=== PATIENT | female | born 1955 | race Caucasian/White ===

== ENCOUNTER 2024-03-09 05:50 | Day surgery (SDC) | payer MEDICARE, OTHER ==
[2024-03-08 10:32] LABS: BASOPHILS % (AUTO) 0.3 % (0-1); EOSINOPHILS # (AUTO) 0.1 X10'3 (0-0.9); EOSINOPHILS % (AUTO) 1.4 % (0-6); HEMATOCRIT 43.2 % (35.0-45.0); HEMOGLOBIN 14.5 g/dl (12.0-16.0); LYMPHOCYTES # (AUTO) 1.8 X10'3 (1.1-4.8); MEAN CORPUSCULAR HEMOGLOBIN 29.7 PG (27.0-31.0); MEAN CORPUSCULAR HGB CONC 33.5 g/dL (33.0-36.5); MEAN CORPUSCULAR VOLUME 88.7 FL (78-98); MEAN PLATELET VOLUME 8.2 FL (7.4-10.4); MONOCYTES # (AUTO) 0.7 X10'3 (0-0.9); MONOCYTES % (AUTO) 10.7 % (2-12); NEUTROPHILS # (AUTO) 3.6 X10'3 (1.8-7.7); NEUTROPHILS % (AUTO) 58.6 % (42-75); PLATELET COUNT 197 X10'3 (140-440); RED BLOOD COUNT 4.87 X10'6 (4.20-5.60); RED CELL DISTRIBUTION WIDTH 13.5 % (11.5-14.5); WHITE BLOOD COUNT 6.2 X10'3 (4.5-11.0)
[2024-03-08 10:44] LABS: ALBUMIN 3.6 G/DL (3.4-5.0); ANION GAP 6 (8-16); CALCIUM 9.6 MG/DL (8.5-10.1); CHLORIDE 105 MMOL/L (99-107); CREATININE 1.01 MG/DL (0.40-0.90); GLUCOSE 92 MG/DL (70-104); POTASSIUM 4.3 MMOL/L (3.5-5.1); SODIUM 138 MMOL/L (135-145); eGFR 54 ML/MIN
[2024-03-08 10:47] LABS: APTT 25 SECONDS (22-32)
[2024-03-08 10:51] LABS: BLOOD UREA NITROGEN 12 MG/DL (7-18); BUN/CREATININE RATIO 11.9 (10.0-20.0)
[~2024-03-09] VITALS: Ht 160 cm; Wt 102.5 kg
[2024-03-09] VITALS (13 sets, daily range): BP systolic 96–145; BP diastolic 50–83; PULSE 53–78; RESP 10–15; TEMP 97.8; O2SAT 95–98
[~2024-03-09 05:50] MED LIST: ASPI-611 PO; ATOR-2 PO; CHOL10008 PO; EZET10TA6 PO; METO25TA6 PO; MULT-74; SENN-267 PO
[2024-03-09] MEDS ORDERED: OMEG-147 PO (06:26)
[2024-03-09] MEDS ORDERED: CLOP75TA34 PO (06:26)
[2024-03-09] MEDS: diphenhydrAMINE 25mg capsule PO PRN (06:47)
[2024-03-09] MEDS: normal saline 1,000 ML IV SCH (06:47)
[2024-03-09] MEDS: LORazepam 0.5 MG tablet PO PRN (06:47)
[2024-03-09] MEDS ORDERED: midazolam 1 mg/ML 2ml injection ONE (07:32)
[2024-03-09] MEDS ORDERED: heparin 1,000unit/ml 10ml vial 10 ML ONE (07:32)
[2024-03-09] MEDS ORDERED: iohexol 350 MG/ML 50ML vial IV ONE (07:32)
[2024-03-09] MEDS ORDERED: verapamil 2.5 mg/ml inj IV ONE (07:32)
[2024-03-09] MEDS ORDERED: iohexol 350MG/ML 100ml bottle IV ONE ×2 (07:32→08:17)
[2024-03-09] MEDS ORDERED: LIDOcaine 1% 30ml preserv. free vial ONE (07:32)
[2024-03-09] MEDS ORDERED: nitroGLYCERIN 500mcg/5mL D5W 5 ML IV ONE ×3 (07:32→08:44)
[2024-03-09] MEDS ORDERED: fentaNYL/PF 50MCG/1 ML 2ML syringe ONE (07:32)
[2024-03-09] MEDS ORDERED: heparin 25,000 UNIT/250ml bag 250 ML IV ONE (08:28)
[2024-03-09] MEDS ORDERED: clopidogrel 75mg tablet ONE ×2 (08:58→09:01)
[2024-03-09] MEDS ORDERED: clopidogrel 300mg tablet ONE (08:58)
[2024-03-09] MEDS ORDERED: aspirin 81mg, enteric-coated 1 TAB TABLET.DR PO ONE (09:35)
[2024-03-09] MEDS: aspirin 81mg tab.chew PO ONE (09:49)
[2024-03-09] MEDS ORDERED: normal saline 1000ml 1,000 ML IV SCH (09:55)
[2024-03-09] MEDS: diphenhydrAMINE 25mg capsule PO ONE (10:54)
[2024-03-10] MEDS ORDERED: clopidogrel 75mg tablet PO SCH (08:00)
== END 2024-03-09 16:45 | disposition home or self-care (01) ==
LOC: SSTAY O 05:50
PROVIDERS: ATTEND Internal Medicine Cardiovascular Disease
DX: T82.855A Stenosis of coronary artery stent, initial encounter (principal); I25.10 Atherosclerotic heart disease of native coronary artery without angina pectoris; I11.0 Hypertensive heart disease with heart failure; I50.30 Unspecified diastolic (congestive) heart failure; E78.5 Hyperlipidemia, unspecified; K21.9 Gastro-esophageal reflux disease without esophagitis; Z79.02 Long term (current) use of antithrombotics/antiplatelets; Z79.899 Other long term (current) drug therapy; Z90.710 Acquired absence of both cervix and uterus; Z95.1 Presence of aortocoronary bypass graft; Z95.5 Presence of coronary angioplasty implant and graft; Z98.890 Other specified postprocedural states; Z80.9 Family history of malignant neoplasm, unspecified; Z82.49 Family history of ischemic heart disease and other diseases of the circulatory system; Z83.3 Family history of diabetes mellitus; Y71.2 Prosthetic and other implants, materials and accessory cardiovascular devices associated with adverse incidents; Y92.89 Other specified places as the place of occurrence of the external cause
CPT/HCPCS: 36415; 80048; 85025; 85347; 85610; 85730; 92920; 93005; 93459; 99152; 99153; A6258; A6402; C1725; C1751; C1769; C1894; J1644; J2001; J2250; J3010; J3490; J7030; Q0163; Q9967; Z7610; 76937

== ENCOUNTER 2025-04-17 14:00 | Outpatient (CLI) | payer MEDICARE, OTHER ==
[~2025-04-17 14:00] MED LIST changes: +CLOP75TA34 PO; +OMEG-147 PO; -SENN-267 PO
--- NOTE | 2025-04-17 15:51 | RADIOLOGY REPORT ---
INDICATION: LUMBAR PAIN, BILAT SACROILIITIS TECHNIQUE: 8 views of the lumbar spine and sacroiliac joints were obtained. COMPARISON: None FINDINGS: There are no acute fractures or subluxations. Mild scoliosis. Multilevel degenerative changes of the spine. Multilevel degenerative disc space narrowing. Mild multilevel degenerative anterior osteophyte formation. Vascular atherosclerotic calcifications of the aorta. Bilateral sacroiliac joints are patent. IMPRESSION: No acute fracture or subluxation.
== END 2025-04-17 23:59 | disposition home or self-care (01) ==
LOC: RAD 14:00
PROVIDERS: ATTEND Family Medicine
DX: M47.816 Spondylosis without myelopathy or radiculopathy, lumbar region (principal); M41.86 Other forms of scoliosis, lumbar region; M46.1 Sacroiliitis, not elsewhere classified; M54.50 Low back pain, unspecified; I70.0 Atherosclerosis of aorta; M48.061 Spinal stenosis, lumbar region without neurogenic claudication
CPT/HCPCS: 72100; 72202